=== PATIENT | male | born 1980 | race Hispanic/Latino ===

== ENCOUNTER 2018-04-11 03:34 | Emergency (ER) | payer SELFPAY ==
[~2018-04-11] VITALS: Ht 177.8 cm; Wt 95.7 kg
[~2018-04-11 03:34] MED LIST: ADDERALL 30 MG30 MG PO; ADDERALL XR 3030 MG PO; ATIVAN2 MG IV; DEXAMETHASONE4 MG IV; DILAUDID2 MG IV; HUMIRA40 MG/0.8 SC; KEPPRA500 MG IV; METHOTREXATE SC; METHYLPREDNISOLO8 MG IV; PLAVIX75 MG PO; PROMETHAZINE HC25 M1 IV
[2018-04-11] MEDS ORDERED: ONDANSETRON HCL 4 MG ORAL DISINTEGRATING TAB PO ONE (04:00)
--- NOTE | 2018-04-11 05:51 | Diagnostic Imaging Report ---
History: Back pain, fall. Comparison studies: MRI thoracic and lumbar spine from 04/05/2018. Technique:: Axial were obtained through the thoracic and lumbar regions. Coronal and sagittal images reconstructed from the axial data. Dose modulation, iterative reconstruction, and/or weight based adjustment of the mA/kV was utilized to reduce the radiation dose to as low as reasonably achievable Intravenous contrast: None Findings: Alignment: Loss of normal thoracic kyphosis. No scoliosis. Soft tissues: No abnormalities.. Paraspinal muscles: Unremarkable Spinal cord: Can not be evaluated. Vertebrae: Unchanged chronic mild superior endplate compression of T6 and T12 vertebral body with approximately 10% decrease in vertebral body height. Unchanged chronic superior endplate compression and anterior wedging deformity of L1 with approximately 30% loss of vertebral body height. No acute subchondral fracture line in the anterior aspect of the inferior endplate is better evaluated in prior MRI of the thoracic and lumbar spine from 04/05/2018. Status post kyphoplasty at L2, L3 and L4 with expected postoperative changes. Unchanged small amount of cement material in intervertebral disc space at L3-L4. Diffuse osseous demineralization. Thoracic degenerative changes: None Lumbar degenerative changes: Mild degenerative disc disease and disc bulge at L2-L3 and L3-or forefoot without canal stenosis. Mild bilateral facet arthrosis at L3-L4 and L4-L5. No significant canal or foraminal stenosis. Incidental finding: Right more than left basilar airspace opacities may represent atelectasis. IMPRESSION: 1. No acute abnormality. 2. Inferior endplate compression subchondral fracture of L1 is better evaluated in prior MRI of the thoracic spine from 04/05/2018. 3. Expected postoperative changes from prior kyphoplasty at L2, L3 and L4. 4. Chronic mild superior endplate compression deformity at T6 and T12. Chronic superior endplate compression and anterior wedging deformity at L1. 5. Diffuse osseous demineralization. 6. Ligament, spinal cord and or vascular abnormalities cannot be excluded on the basis of this examination. Signed by: Dr. Helga Young M.D. on 04/11/2018 5:47 AM
[2018-04-11 06:06] VITALS: BP 138/103
== END 2018-04-11 06:25 | disposition home or self-care (01) ==
LOC: EDBD → ER 03:34 → MERGE 03:34 → ER 06:25
DX: M54.5 Low back pain (principal); M54.6 Pain in thoracic spine; S22.050A Wedge compression fracture of T5-T6 vertebra, initial encounter for closed fracture; S22.080A Wedge compression fracture of T11-T12 vertebra, initial encounter for closed fracture; G89.29 Other chronic pain
CPT/HCPCS: 72128; 72131; 99283

== ENCOUNTER 2021-07-20 18:20 | Inpatient (IN) | payer SELFPAY ==
[~2021-07-20] VITALS: Ht 175.3 cm; Wt 74.8 kg
[~2021-07-20 18:20] MED LIST changes: +ASCORBIC ACID500 M2 PO; +ATIVAN IV; +ATIVAN1 MG PO; +BENADRYL IV; +BENADRYL25 M1 PO; +DECADRON IV; +DECADRON4 M1 PO; +DILANTIN IV; +DILANTIN100 MG PO; +DILANTIN50 MG PO; +DILAUDID4 MG PO; +DOCUSATE SODIU100 MG PO; +FERROUS SULFAT325 MG PO; +FLUCONAZOLE100 MG PO; +HYDROMORPHO2 MG/1 M7 IV; +KEPPRA500 MG PO; +KEPPRA500 MG/5 M IV; +LOVENOX80 MG/0.8 SC; +PANTOPRAZOLE SO40 MG PO; +PHENERGAN25 MG/1 ML IV; +PROMETHAZINE HC25 M1 PO; +PROTONIX IV; +REGLAN5 MG PO; +TPN ELECTROLYTE20 M1; +XARELTO10 MG PO
[2021-07-20 18:55] LABS: BASOPHILS % 0.5 % (0.0-1.0); EOSINOPHILS # (AUTO) 0.2 (0.0-0.4); EOSINOPHILS % 3.6 % (0.0-6.0); HEMATOCRIT 34.2 % (38.2-49.6); HEMOGLOBIN 10.4 g/dL (14.0-18.0); LYMPHOCYTES # (AUTO) 0.6 (1.0-3.2); LYMPHOCYTES % 12.8 % (18.0-39.1); MEAN CORPUSCULAR HEMOGLOBIN 26.7 pg (28-32); MEAN CORPUSCULAR HGB CONC 30.4 g/dL (31-35); MEAN CORPUSCULAR VOLUME 87.7 fL (81-99); MONOCYTES # (AUTO) 0.4 (0.2-0.8); MONOCYTES % 8.2 % (4.4-11.3); NEUTROPHILS # (AUTO) 3.3 (2.1-6.9); NEUTROPHILS % 74.7 % (38.7-80.0); PLATELET COUNT 252 x10e3/uL (140-360); RED CELL DISTRIBUTION WIDTH 15.6 % (11.7-14.4)
[2021-07-20 19:03] LABS: INR 1.02; PROTHROMBIN TIME 14.2 seconds (11.9-14.5)
[2021-07-20 19:04] LABS: PARTIAL THROMBOPLASTIN TIME 32.5 seconds (23.8-35.5)
[2021-07-20 19:10] LABS: ALBUMIN 3.4 g/dL (3.5-5.0); ALBUMIN/GLOBULIN RATIO 1.2 (0.8-2.0); ANION GAP 13.4 mmol/L (8-16); CALCIUM 8.7 mg/dL (8.4-10.2); CREATININE, SERUM 0.64 mg/dL (0.72-1.25); POTASSIUM 3.4 mmol/L (3.5-5.1)
[2021-07-20] MEDS ORDERED: ONDANSETRON HCL INJ 2MG/ML 2ML 2 MG/ML VIAL IV STA (20:18)
[2021-07-20] MEDS ORDERED: Morphine 4mg Syringe 4 MG/ML INJ IV ONE (20:30)
[2021-07-20] MEDS ORDERED: Morphine 4mg Syringe 4 MG/ML INJ ONE (20:59)
[2021-07-20 22:48] VITALS: BP 113/71
[2021-07-20 23:46] VITALS: BP 102/74
[2021-07-21] VITALS (10 sets, daily range): BP systolic 94–124; BP diastolic 65–90
[2021-07-21] MEDS: SODIUM CHLORIDE 0.9% 1000ML 1,000 ML IV SCH ×3 (00:15→06:08)
[2021-07-21] MEDS: Morphine 4mg Syringe 4 MG/ML INJ IV PRN ×2 (00:28→06:08)
[2021-07-21 00:38] LABS: HEMATOCRIT 31.3 % (38.2-49.6); HEMOGLOBIN 9.4 g/dL (14.0-18.0)
[2021-07-21] MEDS ORDERED: PANTOPRAZOLE SO40 MG IV (02:37)
[2021-07-21] MEDS ORDERED: BENADRYL25 M1 IV (02:40)
[2021-07-21] MEDS ORDERED: DILANTIN100 MG IV ×2 (02:40→12:28)
[2021-07-21] MEDS ORDERED: DILAUDID2 MG IV (02:41)
[2021-07-21 06:07] LABS: HEMATOCRIT 29.7 % (38.2-49.6); HEMOGLOBIN 8.9 g/dL (14.0-18.0)
[2021-07-21 10:58] LABS: FERRITIN 26.01 ng/mL (21.81-274.66)
[2021-07-21] MEDS: HYDROMORPHONE 1MG/1ML INJ IV PRN ×3 (13:00→22:15)
[2021-07-21] MEDS ORDERED: LEVETIRACETAM 500MG/5ML VIAL 2,000 MG in SODIUM CHLORIDE 0.9% 100 ML IV ONE (14:30)
[2021-07-21 14:39] LABS: HEMATOCRIT 30.1 % (38.2-49.6); HEMOGLOBIN 9.1 g/dL (14.0-18.0)
[2021-07-21] MEDS ORDERED: LEVETIRACETAM 500MG/5ML VIAL 2,000 MG in SODIUM CHLORIDE 0.9% 150 ML IV ONE (15:45)
[2021-07-21] MEDS ORDERED: DIPHENHYDRAMINE HCL INJ 50 MG/ML VIAL IV SCH (16:00)
[2021-07-21] MEDS: PHENYTOIN SODIUM INJ 50 MG/ML 2 ML VIAL IV SCH (16:06)
[2021-07-21] MEDS ORDERED: CYANOCOBALAMIN INJ 1,000 MCG/ML VIAL IM ONE (16:30)
[2021-07-21] MEDS ORDERED: POTASSIUM CHLORIDE 10MEQ/100ML 100 ML IV ONE (17:15)
[2021-07-21] MEDS: IRON SUCROSE 100 MG in SODIUM CHLORIDE 0.9% 100 ML 100 ML IV SCH (17:58)
[2021-07-21 19:55] LABS: HEMATOCRIT 29.5 % (38.2-49.6); HEMOGLOBIN 8.9 g/dL (14.0-18.0)
[2021-07-21] MEDS ORDERED: PROMETHAZINE 12.5MG/ NACL 0.9% 12.5 MG/50 ML BAG IV PRN (20:15)
[2021-07-21] MEDS ORDERED: PROMETHAZINE 12.5MG/ NACL 0.9% 50 ML ONE (20:39)
[2021-07-22] VITALS (8 sets, daily range): BP systolic 103–125; BP diastolic 69–79
[2021-07-22] MEDS: SODIUM CHLORIDE 0.9% 1000ML 1,000 ML IV SCH ×2 (01:05→12:21)
[2021-07-22] MEDS: HYDROMORPHONE 1MG/1ML INJ IV PRN ×5 (02:00→22:30)
[2021-07-22] MEDS ORDERED: METOCLOPRAMIDE HCL 10 MG/2ML VIAL IV STA (02:15)
[2021-07-22 02:17] LABS: HEMOGLOBIN 8.9 g/dL (14.0-18.0)
[2021-07-22 02:35] LABS: AMYLASE 50 U/L (25-125); LIPASE 17 U/L (8-78)
[2021-07-22] MEDS ORDERED: PROMETHAZINE 12.5MG/ NACL 0.9% 12.5 MG/50 ML BAG IV PRN (02:45)
[2021-07-22] MEDS: DIPHENHYDRAMINE HCL INJ 50 MG/ML VIAL IV PRN ×3 (03:13→18:20)
[2021-07-22] MEDS: PHENYTOIN SODIUM INJ 50 MG/ML 2 ML VIAL IV SCH ×2 (03:14→14:33)
[2021-07-22] MEDS ORDERED: SODIUM CHLORIDE 0.9% 50ML 50 ML ONE (03:27)
[2021-07-22] MEDS ORDERED: METOCLOPRAMIDE HCL 10 MG/2ML VIAL ONE (03:37)
[2021-07-22] MEDS ORDERED: DIPHENHYDRAMINE HCL INJ 50 MG/ML VIAL IV SCH (04:00)
[2021-07-22] MEDS ORDERED: METOCLOPRAMIDE HCL 10 MG/2ML VIAL IV SCH ×2 (06:00)
[2021-07-22] MEDS: LEVETIRACETAM 500MG/5ML VIAL 1,500 MG in SODIUM CHLORIDE 0.9% 100 ML IV SCH ×2 (06:12→18:20)
[2021-07-22 06:21] LABS: BASOPHILS % 0.8 % (0.0-1.0); EOSINOPHILS # (AUTO) 0.2 (0.0-0.4); EOSINOPHILS % 5.7 % (0.0-6.0); HEMATOCRIT 29.5 % (38.2-49.6); HEMOGLOBIN 8.9 g/dL (14.0-18.0); LYMPHOCYTES # (AUTO) 0.7 (1.0-3.2); LYMPHOCYTES % 26.3 % (18.0-39.1); MEAN CORPUSCULAR HEMOGLOBIN 26.5 pg (28-32); MEAN CORPUSCULAR HGB CONC 30.2 g/dL (31-35); MEAN CORPUSCULAR VOLUME 87.8 fL (81-99); MONOCYTES # (AUTO) 0.3 (0.2-0.8); MONOCYTES % 12.6 % (4.4-11.3); NEUTROPHILS # (AUTO) 1.4 (2.1-6.9); NEUTROPHILS % 54.6 % (38.7-80.0); PLATELET COUNT 198 x10e3/uL (140-360); RED BLOOD COUNT 3.36 x10e6/uL (4.3-5.7); RED CELL DISTRIBUTION WIDTH 14.9 % (11.7-14.4)
[2021-07-22 06:40] LABS: ANION GAP 10.4 mmol/L (8-16); CALCIUM 7.9 mg/dL (8.4-10.2); CREATININE, SERUM 0.63 mg/dL (0.72-1.25); POTASSIUM 3.4 mmol/L (3.5-5.1)
[2021-07-22] MEDS ORDERED: DIPHENHYDRAMINE HCL INJ 50 MG/ML VIAL IV ONE (07:00)
[2021-07-22] MEDS ORDERED: PROMETHAZINE 25MG/ NS 50ML (IV) IV ONE (07:30)
[2021-07-22] MEDS: METOCLOPRAMIDE HCL 10 MG/2ML VIAL IV SCH ×4 (08:00→18:20)
[2021-07-22] MEDS: CYANOCOBALAMIN INJ 1,000 MCG/ML VIAL IM SCH (09:37)
[2021-07-22 10:06] LABS: MAGNESIUM 1.7 MG/DL (1.3-2.1); PHOSPHORUS 3.7 MG/DL (2.3-4.7)
[2021-07-22] MEDS ORDERED: PROPOFOL IV EMULSION 10 MG/ML 20 ML VIAL ONE (12:42)
[2021-07-22] MEDS ORDERED: LIDOCAINE HCL 2% LOCAL INJ 5 ML SDV VIAL INJ ONE (12:42)
[2021-07-22 12:46] LABS: HEMATOCRIT 30.5 % (38.2-49.6); HEMOGLOBIN 9.5 g/dL (14.0-18.0)
[2021-07-22] MEDS ORDERED: MIDAZOLAM HCL 2 MG/2 ML VIAL ONE (12:51)
[2021-07-22] MEDS ORDERED: KETAMINE HCL INJ 50 MG/ML 10 ML VIAL ONE (12:51)
[2021-07-22] MEDS ORDERED: FENTANYL CITRATE/PF 100MCG/2 ML INJ ONE (12:51)
[2021-07-22] MEDS: IRON SUCROSE 100 MG in SODIUM CHLORIDE 0.9% 100 ML 100 ML IV SCH (17:00)
[2021-07-22] MEDS ORDERED: MAGNESIUM SULF 1GRAM/DEXTROSE 100 ML IV ONE (22:15)
[2021-07-23] VITALS (7 sets, daily range): BP systolic 98–126; BP diastolic 64–89
[2021-07-23] MEDS: DIPHENHYDRAMINE HCL INJ 50 MG/ML VIAL IV PRN ×4 (00:22→18:27)
[2021-07-23] MEDS: METOCLOPRAMIDE HCL 10 MG/2ML VIAL IV SCH ×4 (00:22→18:27)
[2021-07-23] MEDS: PHENYTOIN SODIUM INJ 50 MG/ML 2 ML VIAL IV SCH ×2 (02:30→14:27)
[2021-07-23] MEDS ORDERED: POTASSIUM CHLORIDE 20 MEQ TAB CR PO ONE (02:30)
[2021-07-23] MEDS: HYDROMORPHONE 1MG/1ML INJ IV PRN ×5 (02:30→22:27)
[2021-07-23] MEDS: POTASSIUM CHLORIDE 20 MEQ TAB CR PO ONE ×2 (02:34→02:36)
[2021-07-23] MEDS: LEVETIRACETAM 500MG/5ML VIAL 1,500 MG in SODIUM CHLORIDE 0.9% 100 ML IV SCH ×2 (06:30→18:27)
[2021-07-23] MEDS: SODIUM CHLORIDE 0.9% 1000ML 1,000 ML IV SCH (06:30)
[2021-07-23 06:41] LABS: HEMOGLOBIN 9.2 g/dL (14.0-18.0)
[2021-07-23] MEDS: CYANOCOBALAMIN INJ 1,000 MCG/ML VIAL IM SCH (08:46)
[2021-07-23 13:35] LABS: HEMATOCRIT 30.3 % (38.2-49.6); HEMOGLOBIN 9.4 g/dL (14.0-18.0)
[2021-07-23] MEDS: IRON SUCROSE 100 MG in SODIUM CHLORIDE 0.9% 100 ML 100 ML IV SCH (17:24)
[2021-07-23] MEDS ORDERED: SODIUM CHLORIDE 0.9% 100 ML ONE (22:09)
[2021-07-23] MEDS: ONDANSETRON HCL INJ 2MG/ML 2ML 2 MG/ML VIAL IV PRN (22:28)
[2021-07-24] MEDS: DIPHENHYDRAMINE HCL INJ 50 MG/ML VIAL IV PRN ×3 (00:25→12:47)
[2021-07-24 00:28] VITALS: BP 114/79
[2021-07-24] MEDS: HYDROMORPHONE 1MG/1ML INJ IV PRN ×4 (02:14→22:16)
[2021-07-24] MEDS: PHENYTOIN SODIUM INJ 50 MG/ML 2 ML VIAL IV SCH ×2 (02:29→13:31)
[2021-07-24] MEDS: SODIUM CHLORIDE 0.9% 1000ML 1,000 ML IV SCH (02:29)
[2021-07-24 04:22] VITALS: BP 109/70
[2021-07-24] MEDS: METOCLOPRAMIDE HCL 10 MG/2ML VIAL IV SCH ×4 (05:58→18:17)
[2021-07-24] MEDS: LEVETIRACETAM 500MG/5ML VIAL 1,500 MG in SODIUM CHLORIDE 0.9% 100 ML IV SCH ×2 (05:58→18:17)
[2021-07-24] MEDS: ONDANSETRON HCL INJ 2MG/ML 2ML 2 MG/ML VIAL IV PRN (05:59)
[2021-07-24 07:03] LABS: BASOPHILS % 0.6 % (0.0-1.0); EOSINOPHILS # (AUTO) 0.2 (0.0-0.4); HEMATOCRIT 30.3 % (38.2-49.6); HEMOGLOBIN 9.4 g/dL (14.0-18.0); LYMPHOCYTES # (AUTO) 0.7 (1.0-3.2); LYMPHOCYTES % 20.8 % (18.0-39.1); MEAN CORPUSCULAR HEMOGLOBIN 26.4 pg (28-32); MEAN CORPUSCULAR VOLUME 85.1 fL (81-99); MONOCYTES # (AUTO) 0.5 (0.2-0.8); MONOCYTES % 13.6 % (4.4-11.3); NEUTROPHILS # (AUTO) 1.9 (2.1-6.9); NEUTROPHILS % 58.7 % (38.7-80.0); PLATELET COUNT 240 x10e3/uL (140-360); RED BLOOD COUNT 3.56 x10e6/uL (4.3-5.7); RED CELL DISTRIBUTION WIDTH 14.9 % (11.7-14.4)
[2021-07-24 07:34] LABS: ALANINE AMINOTRANSFERASE 15 IU/L (0-55); ALBUMIN/GLOBULIN RATIO 1.3 (0.8-2.0); ALKALINE PHOSPHATASE 95 IU/L (40-150); ANION GAP 11.5 mmol/L (8-16); BLOOD UREA NITROGEN < 5 mg/dL (7-26); CALCIUM 7.8 mg/dL (8.4-10.2); CARBON DIOXIDE 27 mmol/L (22-29); CHLORIDE 109 mmol/L (98-107); CREATININE, SERUM 0.69 mg/dL (0.72-1.25); EST GLOMERULAR FILTRATION RATE 127 ML/MIN (60-); GLUCOSE 86 mg/dL (74-118); MAGNESIUM 1.7 MG/DL (1.3-2.1); PHOSPHORUS 3.6 MG/DL (2.3-4.7); POTASSIUM 3.5 mmol/L (3.5-5.1); SODIUM 144 mmol/L (136-145)
[2021-07-24 07:36] LABS: BUN/CREATININE RATIO 7 (6-25)
[2021-07-24 07:59] VITALS: BP 100/70
[2021-07-24] MEDS: CYANOCOBALAMIN INJ 1,000 MCG/ML VIAL IM SCH (08:57)
[2021-07-24] MEDS ORDERED: MAGNESIUM SULF 1GRAM/DEXTROSE 100 ML IV ONE (09:00)
[2021-07-24 11:49] VITALS: BP 105/64
[2021-07-24] MEDS: IRON SUCROSE 100 MG in SODIUM CHLORIDE 0.9% 100 ML 100 ML IV SCH (17:00)
[2021-07-24 20:00] VITALS: BP 111/76
[2021-07-24] MEDS ORDERED: SODIUM CHLORIDE 0.9% 100 ML ONE (20:35)
[2021-07-25] VITALS: BP 114/73
[2021-07-25] MEDS: DIPHENHYDRAMINE HCL INJ 50 MG/ML VIAL IV PRN ×5 (00:13→23:59)
[2021-07-25] MEDS: ONDANSETRON HCL INJ 2MG/ML 2ML 2 MG/ML VIAL IV SCH ×5 (00:45→23:59)
[2021-07-25] MEDS: HYDROMORPHONE 1MG/1ML INJ IV PRN ×6 (02:17→22:13)
[2021-07-25] MEDS: PHENYTOIN SODIUM INJ 50 MG/ML 2 ML VIAL IV SCH ×2 (02:18→14:03)
[2021-07-25 04:00] VITALS: BP 105/69
[2021-07-25] MEDS: METOCLOPRAMIDE HCL 10 MG/2ML VIAL IV SCH ×5 (05:38→23:59)
[2021-07-25] MEDS: LEVETIRACETAM 500MG/5ML VIAL 1,500 MG in SODIUM CHLORIDE 0.9% 100 ML IV SCH ×2 (05:38→17:58)
[2021-07-25] MEDS: CYANOCOBALAMIN INJ 1,000 MCG/ML VIAL IM SCH (08:11)
[2021-07-25 08:12] VITALS: BP 101/68
[2021-07-25 08:57] VITALS: BP 101/68
[2021-07-25 12:02] VITALS: BP 110/78
[2021-07-25] MEDS ORDERED: PROMETHAZINE 12.5MG/ NACL 0.9% 12.5 MG/50 ML BAG IV ONE (13:00)
[2021-07-25 14:51] LABS: BASOPHILS % 0.9 % (0.0-1.0); EOSINOPHILS # (AUTO) 0.2 (0.0-0.4); EOSINOPHILS % 7.1 % (0.0-6.0); HEMATOCRIT 33.5 % (38.2-49.6); HEMOGLOBIN 10.2 g/dL (14.0-18.0); LYMPHOCYTES # (AUTO) 0.7 (1.0-3.2); LYMPHOCYTES % 21.6 % (18.0-39.1); MEAN CORPUSCULAR HEMOGLOBIN 26.6 pg (28-32); MEAN CORPUSCULAR HGB CONC 30.4 g/dL (31-35); MEAN CORPUSCULAR VOLUME 87.2 fL (81-99); MONOCYTES # (AUTO) 0.4 (0.2-0.8); NEUTROPHILS # (AUTO) 1.9 (2.1-6.9); NEUTROPHILS % 57.1 % (38.7-80.0); PLATELET COUNT 243 x10e3/uL (140-360); RED BLOOD COUNT 3.84 x10e6/uL (4.3-5.7)
[2021-07-25 15:12] LABS: ANION GAP 12.7 mmol/L (8-16); BLOOD UREA NITROGEN < 5 mg/dL (7-26); BUN/CREATININE RATIO 7 (6-25); CARBON DIOXIDE 26 mmol/L (22-29); CHLORIDE 107 mmol/L (98-107); CREATININE, SERUM 0.76 mg/dL (0.72-1.25); EST GLOMERULAR FILTRATION RATE 114 ML/MIN (60-); GLUCOSE 74 mg/dL (74-118); MAGNESIUM 1.8 MG/DL (1.3-2.1); POTASSIUM 3.7 mmol/L (3.5-5.1); SODIUM 142 mmol/L (136-145)
[2021-07-25] MEDS: IRON SUCROSE 100 MG in SODIUM CHLORIDE 0.9% 100 ML 100 ML IV SCH (16:57)
[2021-07-25 20:00] VITALS: BP 96/75
[2021-07-26] VITALS (8 sets, daily range): BP systolic 94–110; BP diastolic 63–77
[2021-07-26] MEDS: HYDROMORPHONE 1MG/1ML INJ IV PRN ×6 (02:18→22:35)
[2021-07-26] MEDS: PHENYTOIN SODIUM INJ 50 MG/ML 2 ML VIAL IV SCH ×2 (02:58→14:34)
[2021-07-26] MEDS: LEVETIRACETAM 500MG/5ML VIAL 1,500 MG in SODIUM CHLORIDE 0.9% 100 ML IV SCH ×2 (06:40→18:00)
[2021-07-26] MEDS: DIPHENHYDRAMINE HCL INJ 50 MG/ML VIAL IV PRN ×3 (06:41→18:33)
[2021-07-26] MEDS: METOCLOPRAMIDE HCL 10 MG/2ML VIAL IV SCH ×3 (06:41→18:32)
[2021-07-26] MEDS: ONDANSETRON HCL INJ 2MG/ML 2ML 2 MG/ML VIAL IV SCH ×3 (06:41→18:32)
[2021-07-26 07:32] LABS: BASOPHILS % 1.1 % (0.0-1.0); EOSINOPHILS # (AUTO) 0.2 (0.0-0.4); HEMATOCRIT 33.1 % (38.2-49.6); HEMOGLOBIN 10.2 g/dL (14.0-18.0); LYMPHOCYTES # (AUTO) 0.8 (1.0-3.2); LYMPHOCYTES % 20.8 % (18.0-39.1); MEAN CORPUSCULAR HEMOGLOBIN 26.4 pg (28-32); MEAN CORPUSCULAR HGB CONC 30.8 g/dL (31-35); MEAN CORPUSCULAR VOLUME 85.8 fL (81-99); MONOCYTES # (AUTO) 0.5 (0.2-0.8); MONOCYTES % 11.8 % (4.4-11.3); NEUTROPHILS # (AUTO) 2.3 (2.1-6.9); PLATELET COUNT 236 x10e3/uL (140-360); RED BLOOD COUNT 3.86 x10e6/uL (4.3-5.7); RED CELL DISTRIBUTION WIDTH 15.1 % (11.7-14.4)
[2021-07-26 08:00] LABS: ANION GAP 9.7 mmol/L (8-16); CALCIUM 8.4 mg/dL (8.4-10.2); CREATININE, SERUM 0.85 mg/dL (0.72-1.25); POTASSIUM 3.7 mmol/L (3.5-5.1)
[2021-07-26] MEDS: CYANOCOBALAMIN INJ 1,000 MCG/ML VIAL IM SCH (09:24)
[2021-07-26] MEDS ORDERED: SODIUM CHLORIDE 0.9% 100 ML ONE (15:50)
[2021-07-26] MEDS: IRON SUCROSE 100 MG in SODIUM CHLORIDE 0.9% 100 ML 100 ML IV SCH (16:50)
[2021-07-26] MEDS: CENTRAL TPN FORMULA 1 BAG IV SCH (20:32)
[2021-07-27] VITALS (8 sets, daily range): BP systolic 94–100; BP diastolic 55–75
[2021-07-27] MEDS: DIPHENHYDRAMINE HCL INJ 50 MG/ML VIAL IV PRN ×5 (00:32→23:49)
[2021-07-27] MEDS: METOCLOPRAMIDE HCL 10 MG/2ML VIAL IV SCH ×6 (00:32→23:49)
[2021-07-27] MEDS: ONDANSETRON HCL INJ 2MG/ML 2ML 2 MG/ML VIAL IV SCH ×6 (00:32→23:49)
[2021-07-27] MEDS: HYDROMORPHONE 1MG/1ML INJ IV PRN ×5 (02:40→21:52)
[2021-07-27] MEDS: PHENYTOIN SODIUM INJ 50 MG/ML 2 ML VIAL IV SCH ×2 (02:51→14:32)
[2021-07-27] MEDS: LEVETIRACETAM 500MG/5ML VIAL 1,500 MG in SODIUM CHLORIDE 0.9% 100 ML IV SCH ×2 (05:34→17:48)
[2021-07-27] MEDS ORDERED: SODIUM CHLORIDE 0.9% 250ML 250 ML ONE (05:53)
[2021-07-27 06:24] LABS: BASOPHILS % 0.8 % (0.0-1.0); EOSINOPHILS # (AUTO) 0.2 (0.0-0.4); EOSINOPHILS % 6.2 % (0.0-6.0); HEMATOCRIT 34.6 % (38.2-49.6); HEMOGLOBIN 10.3 g/dL (14.0-18.0); LYMPHOCYTES # (AUTO) 0.9 (1.0-3.2); LYMPHOCYTES % 22.6 % (18.0-39.1); MEAN CORPUSCULAR HEMOGLOBIN 26.3 pg (28-32); MEAN CORPUSCULAR HGB CONC 29.8 g/dL (31-35); MEAN CORPUSCULAR VOLUME 88.5 fL (81-99); MONOCYTES # (AUTO) 0.5 (0.2-0.8); MONOCYTES % 12.7 % (4.4-11.3); NEUTROPHILS # (AUTO) 2.2 (2.1-6.9); NEUTROPHILS % 57.7 % (38.7-80.0); PLATELET COUNT 260 x10e3/uL (140-360); RED BLOOD COUNT 3.91 x10e6/uL (4.3-5.7); RED CELL DISTRIBUTION WIDTH 15.6 % (11.7-14.4)
[2021-07-27 06:48] LABS: ANION GAP 11.1 mmol/L (8-16); CALCIUM 8.7 mg/dL (8.4-10.2); CREATININE, SERUM 0.78 mg/dL (0.72-1.25); PHOSPHORUS 3.1 MG/DL (2.3-4.7); POTASSIUM 4.1 mmol/L (3.5-5.1)
[2021-07-27] MEDS: CYANOCOBALAMIN INJ 1,000 MCG/ML VIAL IM SCH (09:23)
[2021-07-27] MEDS: IRON SUCROSE 100 MG in SODIUM CHLORIDE 0.9% 100 ML 100 ML IV SCH (17:48)
[2021-07-27] MEDS: CENTRAL TPN FORMULA 1 BAG IV SCH (20:00)
[2021-07-27] MEDS ORDERED: SODIUM CHLORIDE 0.9% 100 ML ONE (20:24)
[2021-07-28 00:18] VITALS: BP 97/67
[2021-07-28] MEDS: HYDROMORPHONE 1MG/1ML INJ IV PRN ×3 (01:41→09:42)
[2021-07-28] MEDS: PHENYTOIN SODIUM INJ 50 MG/ML 2 ML VIAL IV SCH ×2 (02:30→14:30)
[2021-07-28 05:38] VITALS: BP 103/63
[2021-07-28] MEDS: LEVETIRACETAM 500MG/5ML VIAL 1,500 MG in SODIUM CHLORIDE 0.9% 100 ML IV SCH (06:00)
[2021-07-28] MEDS: METOCLOPRAMIDE HCL 10 MG/2ML VIAL IV SCH ×2 (06:00→11:59)
[2021-07-28] MEDS: ONDANSETRON HCL INJ 2MG/ML 2ML 2 MG/ML VIAL IV SCH ×2 (06:00→11:59)
[2021-07-28] MEDS: DIPHENHYDRAMINE HCL INJ 50 MG/ML VIAL IV PRN ×2 (06:48→09:42)
[2021-07-28 06:57] LABS: BASOPHILS # (AUTO) 0.1 (0.0-0.1); BASOPHILS % 1.3 % (0.0-1.0); EOSINOPHILS # (AUTO) 0.3 (0.0-0.4); EOSINOPHILS % 6.3 % (0.0-6.0); HEMOGLOBIN 10.8 g/dL (14.0-18.0); LYMPHOCYTES % 25.3 % (18.0-39.1); MEAN CORPUSCULAR HEMOGLOBIN 26.6 pg (28-32); MEAN CORPUSCULAR VOLUME 88.7 fL (81-99); MONOCYTES # (AUTO) 0.5 (0.2-0.8); NEUTROPHILS # (AUTO) 2.2 (2.1-6.9); NEUTROPHILS % 53.8 % (38.7-80.0); PLATELET COUNT 245 x10e3/uL (140-360); RED BLOOD COUNT 4.06 x10e6/uL (4.3-5.7); RED CELL DISTRIBUTION WIDTH 16.2 % (11.7-14.4)
[2021-07-28 07:16] LABS: ANION GAP 12.4 mmol/L (8-16); CALCIUM 8.9 mg/dL (8.4-10.2); CREATININE, SERUM 0.75 mg/dL (0.72-1.25); POTASSIUM 4.4 mmol/L (3.5-5.1)
[2021-07-28 08:10] VITALS: BP 94/68
[2021-07-28 08:21] VITALS: BP 94/68
[2021-07-28] MEDS: CYANOCOBALAMIN INJ 1,000 MCG/ML VIAL IM SCH (08:47)
[2021-07-28 11:40] VITALS: BP 106/68
[2021-07-28 14:15] LABS: C DIFFICILE TOXIN A&B AMP PROB NEGATIVE (NEGATIVE); WBC,FECAL (FECAL LACTOFERRIN) NEGATIVE (NEGATIVE)
[2021-07-28] MEDS ORDERED: METOCLOPRAMIDE HCL 10 MG TAB PO SCH (16:30)
== END 2021-07-28 16:01 | disposition home or self-care (01) | DRG 378 ==
LOC: EDBD 18:20 → ER 18:33 → ERHOLD 20:40 → MED/SURG3 21:53 → OBSVTOIN 07-21 09:05
PROVIDERS: ADMIT Internal Medicine; ATTEND Internal Medicine
PROC: 0DB68ZX Excision of Stomach, Via Natural or Artificial Opening Endoscopic, Diagnostic (ICD-10-PCS; 2021-07-22)
PROC: 0DB98ZX Excision of Duodenum, Via Natural or Artificial Opening Endoscopic, Diagnostic (ICD-10-PCS; principal; 2021-07-22 16:00)
PROC: 3E0436Z Introduction of Nutritional Substance into Central Vein, Percutaneous Approach (ICD-10-PCS; 2021-07-26)
DX: K29.71 Gastritis, unspecified, with bleeding (principal); M48.55XA Collapsed vertebra, not elsewhere classified, thoracolumbar region, initial encounter for fracture; K91.2 Postsurgical malabsorption, not elsewhere classified; C49.21 Malignant neoplasm of connective and soft tissue of right lower limb, including hip; Z85.89 Personal history of malignant neoplasm of other organs and systems; Z88.8 Allergy status to other drugs, medicaments and biological substances; Z91.041 Radiographic dye allergy status; Z20.822 Contact with and (suspected) exposure to COVID-19; D63.8 Anemia in other chronic diseases classified elsewhere; E87.6 Hypokalemia; G89.4 Chronic pain syndrome; Z76.5 Malingerer [conscious simulation]; K44.9 Diaphragmatic hernia without obstruction or gangrene
CPT/HCPCS: 36415; 43239; 70450; 71045; 72070; 72100; 72146; 72148; 73522; 74019; 74176; 74250; 80048; 80053; 80185; 82150; 82542; 82607; 82728; 82746; 83540; 83630; 83690; 83735; 84100; 84466; 85014; 85018; 85025; 85045; 85610; 85730; 86141; 86850; 86900; 87045; 87177; 87493; 88305; 88312; 93005; 94799; 96360; 99284; G0378; J1165; J1170; J1200; J1756; J2001; J2250; J2270; J2405; J2550; J2765; J3010; J3420; J3475; J3480; J7030; J7050; U0002

== ENCOUNTER 2021-08-27 21:36 | Emergency (ER) | payer SELFPAY ==
[~2021-08-27] VITALS: Ht 175.3 cm; Wt 72.6 kg
[~2021-08-27 21:36] MED LIST changes: +BENADRYL25 M1 IV; +DILANTIN100 MG IV; +PANTOPRAZOLE SO40 MG IV
[2021-08-27] MEDS ORDERED: FLUCONAZOLE 400MG/200ML BAG 200 ML IV STA (21:43)
[2021-08-27] MEDS ORDERED: ASPIRIN 325 MG TAB PO STA (22:08)
[2021-08-27 22:12] LABS: BASOPHILS % 0.3 % (0.0-1.0); EOSINOPHILS # (AUTO) 0.1 (0.0-0.4); EOSINOPHILS % 0.5 % (0.0-6.0); HEMATOCRIT 36.7 % (38.2-49.6); HEMOGLOBIN 11.3 g/dL (14.0-18.0); LYMPHOCYTES # (AUTO) 0.6 (1.0-3.2); LYMPHOCYTES % 5.3 % (18.0-39.1); MEAN CORPUSCULAR HGB CONC 30.8 g/dL (31-35); MEAN CORPUSCULAR VOLUME 90.8 fL (81-99); MONOCYTES # (AUTO) 1.2 (0.2-0.8); MONOCYTES % 10.8 % (4.4-11.3); NEUTROPHILS # (AUTO) 9.1 (2.1-6.9); NEUTROPHILS % 82.6 % (38.7-80.0); PLATELET COUNT 312 x10e3/uL (140-360); RED BLOOD COUNT 4.04 x10e6/uL (4.3-5.7)
[2021-08-27 22:34] LABS: ALBUMIN 3.8 g/dL (3.5-5.0); ALBUMIN/GLOBULIN RATIO 1.2 (0.8-2.0); ANION GAP 14.7 mmol/L (8-16); CALCIUM 9.2 mg/dL (8.4-10.2); CREATININE, SERUM 0.82 mg/dL (0.72-1.25); POTASSIUM 3.7 mmol/L (3.5-5.1)
[2021-08-27 22:40] LABS: CREATINE KINASE MB 0.9 ng/mL (0-5.0)
[2021-08-27 22:51] LABS: AMPHETAMINES SCREEN,URINE NEGATIVE (NEGATIVE); PHENCYCLIDINE SCREEN,URINE NEGATIVE (NEGATIVE)
[2021-08-27 22:52] LABS: INR 0.95; PROTHROMBIN TIME 13.3 seconds (11.9-14.5)
[2021-08-27 22:52] LABS: BENZODIAZEPINES SCREEN,URINE POSITIVE (NEGATIVE)
[2021-08-27 23:25] VITALS: BP 133/81
== END 2021-08-27 23:50 | disposition home or self-care (01) ==
LOC: ER 21:41
DX: R07.89 Other chest pain (principal); I10 Essential (primary) hypertension; M54.9 Dorsalgia, unspecified; G89.29 Other chronic pain; R94.31 Abnormal electrocardiogram [ECG] [EKG]
CPT/HCPCS: 36415; 71045; 80053; 80307; 82550; 82553; 83605; 83880; 84484; 85025; 85379; 85610; 87040; 93005; 99284; J1450; U0002

== ENCOUNTER 2021-09-11 13:34 | Emergency (ER) | payer SELFPAY ==
[~2021-09-11] VITALS: Ht 175.3 cm; Wt 72.6 kg
[2021-09-11] MEDS ORDERED: SODIUM CHLORIDE 0.9% 1000ML 1,000 ML IV STA (13:55)
[2021-09-11] MEDS ORDERED: LEVETIRACETAM 500MG/5ML VIAL 1,000 MG in SODIUM CHLORIDE 0.9% 100 ML IV ONE (14:00)
[2021-09-11 14:29] LABS: BASOPHILS % 0.5 % (0.0-1.0); EOSINOPHILS # (AUTO) 0.2 (0.0-0.4); EOSINOPHILS % 3.4 % (0.0-6.0); LYMPHOCYTES # (AUTO) 0.8 (1.0-3.2); LYMPHOCYTES % 12.3 % (18.0-39.1); MEAN CORPUSCULAR HEMOGLOBIN 27.5 pg (28-32); MEAN CORPUSCULAR HGB CONC 31.4 g/dL (31-35); MEAN CORPUSCULAR VOLUME 87.5 fL (81-99); MONOCYTES # (AUTO) 0.7 (0.2-0.8); MONOCYTES % 10.1 % (4.4-11.3); NEUTROPHILS # (AUTO) 4.7 (2.1-6.9); NEUTROPHILS % 73.4 % (38.7-80.0); PLATELET COUNT 257 x10e3/uL (140-360); RED CELL DISTRIBUTION WIDTH 18.2 % (11.7-14.4)
[2021-09-11 14:33] LABS: CLARITY,URINE CLEAR (CLEAR); COLOR,URINE YELLOW (YELLOW); KETONES,URINE NEGATIVE (NEGATIVE); LEUKOCYTE ESTERASE ,URINE NEGATIVE (NEGATIVE); NITRITE,URINE NEGATIVE (NEGATIVE); PROTEIN,URINE DIPSTICK NEGATIVE (NEGATIVE); URINE UROBILINOGEN 0.2 mg/dL (0.2 - 1)
[2021-09-11 14:35] LABS: AMPHETAMINES SCREEN,URINE NEGATIVE (NEGATIVE); BENZODIAZEPINES SCREEN,URINE NEGATIVE (NEGATIVE); PHENCYCLIDINE SCREEN,URINE NEGATIVE (NEGATIVE)
[2021-09-11 14:42] LABS: MUCUS,URINE FEW (RARE); WBC,URINE (MAN) 0-5 /HPF (0-5)
[2021-09-11 14:51] LABS: ALBUMIN 3.6 g/dL (3.5-5.0); ALBUMIN/GLOBULIN RATIO 1.1 (0.8-2.0); ANION GAP 16.6 mmol/L (8-16); CALCIUM 9.3 mg/dL (8.4-10.2); CREATININE, SERUM 0.76 mg/dL (0.72-1.25); POTASSIUM 3.6 mmol/L (3.5-5.1)
[2021-09-11 14:58] LABS: CREATINE KINASE MB 4.9 ng/mL (0-5.0)
[2021-09-11] MEDS ORDERED: ACETAMINOPHEN 325 MG TAB PO NR (15:00)
[2021-09-11 18:02] VITALS: BP 118/84
== END 2021-09-11 18:00 | disposition home or self-care (01) ==
LOC: ER 13:54
DX: G40.909 Epilepsy, unspecified, not intractable, without status epilepticus (principal); M54.9 Dorsalgia, unspecified; G89.29 Other chronic pain; Z76.5 Malingerer [conscious simulation]; I10 Essential (primary) hypertension; Z85.89 Personal history of malignant neoplasm of other organs and systems
CPT/HCPCS: 36415; 70450; 72125; 73522; 80053; 80185; 80307; 81001; 82550; 82553; 84484; 85025; 99282; J1953; J7030; J7050

== ENCOUNTER 2021-10-02 00:41 | Emergency (ER) | payer OTHER ==
[~2021-10-02] VITALS: Ht 175.3 cm; Wt 72.6 kg
[2021-10-02] MEDS ORDERED: ACETAMINOPHEN 1000 MG/100 ML IV STA (01:22)
[2021-10-02] MEDS ORDERED: SODIUM CHLORIDE 0.9% 1000ML 1,000 ML IV STA (01:22)
== END 2021-10-02 04:50 | disposition home or self-care (01) ==
LOC: ER 00:46
DX: M25.551 Pain in right hip (principal); S70.01XA Contusion of right hip, initial encounter; W18.30XA Fall on same level, unspecified, initial encounter; Y93.01 Activity, walking, marching and hiking; Y92.59 Other trade areas as the place of occurrence of the external cause; I10 Essential (primary) hypertension; G40.909 Epilepsy, unspecified, not intractable, without status epilepticus; Z85.89 Personal history of malignant neoplasm of other organs and systems
CPT/HCPCS: 73522; 74176; 99283; J0131; J7030

== ENCOUNTER 2021-10-19 01:30 | Emergency (ER) | payer SELFPAY ==
[~2021-10-19] VITALS: Ht 177.8 cm; Wt 72.6 kg
[2021-10-19] MEDS ORDERED: SODIUM CHLORIDE 0.9% 1000ML 1,000 ML IV STA ×2 (01:39→01:41)
[2021-10-19 01:56] LABS: BASOPHILS % 0.3 % (0.0-1.0); EOSINOPHILS # (AUTO) 0.1 (0.0-0.4); EOSINOPHILS % 0.7 % (0.0-6.0); HEMATOCRIT 36.2 % (38.2-49.6); HEMOGLOBIN 11.6 g/dL (14.0-18.0); LYMPHOCYTES # (AUTO) 0.8 (1.0-3.2); LYMPHOCYTES % 11.3 % (18.0-39.1); MEAN CORPUSCULAR HEMOGLOBIN 26.5 pg (28-32); MEAN CORPUSCULAR VOLUME 82.8 fL (81-99); MONOCYTES # (AUTO) 0.8 (0.2-0.8); MONOCYTES % 10.4 % (4.4-11.3); NEUTROPHILS # (AUTO) 5.6 (2.1-6.9); PLATELET COUNT 312 x10e3/uL (140-360); RED BLOOD COUNT 4.37 x10e6/uL (4.3-5.7); RED CELL DISTRIBUTION WIDTH 16.9 % (11.7-14.4)
[2021-10-19 02:03] LABS: CLARITY,URINE SL CLOUDY (CLEAR); COLOR,URINE YELLOW (YELLOW); KETONES,URINE 2+ (NEGATIVE); LEUKOCYTE ESTERASE ,URINE NEGATIVE (NEGATIVE); NITRITE,URINE NEGATIVE (NEGATIVE); PROTEIN,URINE DIPSTICK TRACE (NEGATIVE)
[2021-10-19 02:05] LABS: AMPHETAMINES SCREEN,URINE NEGATIVE (NEGATIVE); BENZODIAZEPINES SCREEN,URINE NEGATIVE (NEGATIVE); PHENCYCLIDINE SCREEN,URINE NEGATIVE (NEGATIVE)
[2021-10-19 02:07] LABS: BACTERIA,URINE FEW /HPF; EPITHELIAL CELLS,URINE RARE /LPF; MUCUS,URINE MODERATE (RARE); RBC,URINE 0-5 /HPF (0-5); WBC,URINE (MAN) 0-5 /HPF (0-5)
[2021-10-19 02:14] LABS: ALBUMIN 4.3 g/dL (3.5-5.0); ALBUMIN/GLOBULIN RATIO 1.3 (0.8-2.0); ANION GAP 15.5 mmol/L (8-16); CALCIUM 9.4 mg/dL (8.4-10.2); CREATININE, SERUM 0.8 mg/dL (0.72-1.25); POTASSIUM 3.5 mmol/L (3.5-5.1)
[2021-10-19] MEDS ORDERED: PROTONIX20 MG PO (02:22)
== END 2021-10-19 03:30 | disposition home or self-care (01) ==
LOC: ER 01:41
DX: R11.2 Nausea with vomiting, unspecified (principal); R19.7 Diarrhea, unspecified; R10.9 Unspecified abdominal pain; I10 Essential (primary) hypertension; G40.909 Epilepsy, unspecified, not intractable, without status epilepticus; Z88.8 Allergy status to other drugs, medicaments and biological substances; Z88.6 Allergy status to analgesic agent; Z91.041 Radiographic dye allergy status; Z79.899 Other long term (current) drug therapy
CPT/HCPCS: 36415; 74176; 80053; 80307; 81001; 85025; 93005; 99284; J7030